=== PATIENT | female | born 1990 | race Caucasian/White ===

== ENCOUNTER 2018-08-07 12:16 | Emergency (ER) | payer MEDICAID ==
[~2018-08-07] VITALS: Ht 157.5 cm; Wt 78.2 kg
[2018-08-07 12:37] VITALS: BP 121/75
--- NOTE | 2018-08-07 12:57 | NUR ---
AMBULATORY TO ER #8 WITH C/O FEELING SAD AND WEEPING FOR THE PAST MONTH. STATES SHE AND FAMILY LUIS FELIPE MOVED TO [place] FROM [facility] IN JANUARY 2018. FEELING SAD BECAUSE SHE HAS NOT MADE NEW FRIENDS OR SECURED EMPLOYMENT. HX DEPRESSION AND ANXIETY SINCE 2018.
[2018-08-07 13:48] LABS: BASOPHILS % (AUTO) 0.3 % (0-1); EOSINOPHILS # (AUTO) 0.2 X10'3 (0-0.9); EOSINOPHILS % (AUTO) 1.9 % (0-6); HEMATOCRIT 42.8 % (35.0-45.0); HEMOGLOBIN 14.6 g/dl (12.0-16.0); LYMPHOCYTES % (AUTO) 10.4 % (21-51); MEAN CORPUSCULAR HEMOGLOBIN 32.2 PG (27.0-31.0); MEAN CORPUSCULAR HGB CONC 34.2 g/dL (33.0-36.5); MEAN CORPUSCULAR VOLUME 94.3 FL (78-98); MEAN PLATELET VOLUME 8.7 FL (7.4-10.4); MONOCYTES # (AUTO) 0.6 X10'3 (0-0.9); MONOCYTES % (AUTO) 6.7 % (2-12); NEUTROPHILS # (AUTO) 7.7 X10'3 (1.8-7.7); NEUTROPHILS % (AUTO) 80.7 % (42-75); PLATELET COUNT 306 X10'3 (140-440); RED BLOOD COUNT 4.54 X10'6 (4.20-5.60); RED CELL DISTRIBUTION WIDTH 12.1 % (11.5-14.5); WHITE BLOOD COUNT 9.5 X10'3 (4.5-11.0)
[2018-08-07 13:49] LABS: URINE HCG NEGATIVE (NEG)
[2018-08-07 13:56] LABS: ALANINE AMINOTRANSFERASE 16 U/L (12-78); ALBUMIN 3.7 G/DL (3.4-5.0); ALKALINE PHOSPHATASE 69 IU/L (46-116); ANION GAP 11 (8-16); ASPARTATE AMINO TRANSFERASE 16 U/L (10-37); BILIRUBIN,TOTAL 0.2 MG/DL (0.1-1.0); BLOOD UREA NITROGEN 9 MG/DL (7-18); BUN/CREATININE RATIO 11.7 (6.6-38.0); CALCIUM 8.7 MG/DL (8.5-10.1); CHLORIDE 105 MMOL/L (99-107); CREATININE 0.77 MG/DL (0.40-0.90); GLUCOSE 114 MG/DL (70-104); POTASSIUM 4.3 MMOL/L (3.5-5.1); SODIUM 141 MMOL/L (135-145); TOTAL CARBON DIOXIDE 25.2 MMOL/L (24-32); TOTAL PROTEIN 7.3 G/DL (6.4-8.2); eGFR 89 ML/MIN
[2018-08-07 14:01] LABS: URINE AMPHETAMINE SCREEN NEGATIVE (Neg); URINE BARBITUATE SCREEN POSITIVE (Neg); URINE BENZODIAZEPINES SCREEN NEGATIVE (Neg); URINE CANNABINOID SCREEN POSITIVE (Neg); URINE COCAINE SCREEN NEGATIVE (Neg); URINE METHADONE SCREEN NEGATIVE (Neg); URINE OPIATE SCREEN NEGATIVE (Neg); URINE PHENCYCLIDINE SCREEN NEGATIVE (Neg)
[2018-08-07 14:06] LABS: ETHANOL < 0.010 GM/DL (0.0-0.010)
--- NOTE | 2018-08-07 14:14 | NUR ---
TC TO SPECIALISTS ROUSTABOUT CREW LEADER FOR TELEPSYCH CONSULT. CART #2 SET UP IN ROOM.
--- NOTE | 2018-08-07 15:06 | NUR ---
AWAITING TELEPSYCH CONSULT. CAMERA IS SET UP AND ON IN THE ROOM.
--- NOTE | 2018-08-07 15:18 | NUR ---
TC FROM PSYCHIATRIST, DR. ROSALES, SPECIALISTS BASIN OPERATOR. REPORT GIVEN TO AND INFORMED THAT WILL CALL IN TO ROOM FOR TELE CONSULT.
[2018-08-07 15:37] LABS: CLARITY,URINE SLIGHTLY CLOUDY (Clear); COLOR,URINE YELLOW (Yellow); GLUCOSE, URINE NEGATIVE (Neg); KETONES,URINE NEGATIVE (Neg); LEUKOCYTE ESTERASE ,URINE NEGATIVE (Neg); NITRITES, URINE NEGATIVE (Neg); OCCULT BLOOD,URINE NEGATIVE (Neg); PH,URINE 6.5 (4.8-8.0); PROTEIN,URINE NEGATIVE (Neg); UROBILINOGEN,URINE 0.2 E.U/dL (0.2-1.0)
[2018-08-07 15:39] LABS: UA COLLECTION TYPE CLN CATCH MIDSTREAM
[2018-08-07 15:41] LABS: MUCUS STRANDS MODERATE /LPF (Neg); SQUAMOUS EPITHELIAL CELL,UR MANY /LPF (FEW)
[2018-08-07 15:42] LABS: BACTERIA,URINE FEW /HPF (Neg); RBC,URINE 0-2 /HPF (0-2); WBC,URINE 0-4 /HPF (0-4)
--- NOTE | 2018-08-07 15:46 | NUR ---
TC FROM PSYCHIATRIST WITH SUGGESTIONS. REPORT WILL BE GENERATED AND FAXED FOR THE ER PROVIDER TO USE FOR TREATMENT PLAN.
[2018-08-07] MEDS ORDERED: ESCI10TA PO (16:08)
== END 2018-08-07 16:20 | disposition home or self-care (01) ==
LOC: ER 12:16
DX: F32.9 Major depressive disorder, single episode, unspecified (principal); Z79.899 Other long term (current) drug therapy
CPT/HCPCS: 36415; 80053; 80305; 80320; 81001; 81025; 84443; 85025; 99284

== ENCOUNTER 2019-02-06 17:58 | Emergency (ER) | payer MEDICAID ==
[~2019-02-06] VITALS: Ht 157.5 cm; Wt 75.9 kg
[~2019-02-06 17:58] MED LIST: ESCI10TA PO
[2019-02-06] MEDS ORDERED: ondansetron 4mg rapidly disintigrating tab PO ONE (18:35)
[2019-02-06] MEDS ORDERED: bacitracin 15gm ointment TP ONE (18:35)
[2019-02-06] MEDS ORDERED: TETanus/Pertussis (Acell)/Diphther VAC/PF (Tdap-Adult) 0.5ml syringe IM ONE (18:35)
--- NOTE | 2019-02-06 19:23 | NUR ---
overhead door technician at bedside to irrigate lac to rt foot
[2019-02-06] MEDS ORDERED: ketorolac trometh inj. 60 MG/2 ML VIAL IM ONE (19:45)
[2019-02-06 20:19] VITALS: BP 123/68
== END 2019-02-06 20:21 | disposition home or self-care (01) ==
LOC: ER 17:58
DX: S91.311A Laceration without foreign body, right foot, initial encounter (principal); F32.9 Major depressive disorder, single episode, unspecified; Z79.899 Other long term (current) drug therapy; W25.XXXA Contact with sharp glass, initial encounter; Y93.89 Activity, other specified; Y92.89 Other specified places as the place of occurrence of the external cause; Y99.8 Other external cause status
CPT/HCPCS: 12002; 90471; 90715; 96372; 99284; J1885; J2405

== ENCOUNTER 2019-02-16 12:01 | Emergency (ER) | payer MEDICAID ==
[~2019-02-16] VITALS: Ht 157.5 cm; Wt 72.0 kg
[2019-02-16 12:04] VITALS: BP 115/61
== END 2019-02-16 12:53 | disposition home or self-care (01) ==
LOC: ER 12:01
DX: S91.311D Laceration without foreign body, right foot, subsequent encounter (principal); F32.9 Major depressive disorder, single episode, unspecified; Z79.899 Other long term (current) drug therapy; W25.XXXD Contact with sharp glass, subsequent encounter
CPT/HCPCS: 99282

== ENCOUNTER 2019-02-18 10:20 | Emergency (ER) | payer MEDICAID ==
[~2019-02-18] VITALS: Ht 157.5 cm; Wt 78.2 kg
[2019-02-18 12:36] VITALS: BP 113/74
== END 2019-02-18 12:39 | disposition home or self-care (01) ==
LOC: ER 10:20
DX: M79.671 Pain in right foot (principal); F32.9 Major depressive disorder, single episode, unspecified; Z79.899 Other long term (current) drug therapy
CPT/HCPCS: 29125; 73630; 99283

== ENCOUNTER 2019-03-29 15:41 | Emergency (ER) | payer MEDICAID, OTHER ==
[~2019-03-29] VITALS: Ht 157.5 cm; Wt 70.9 kg
[2019-03-29 15:45] VITALS: BP 117/58
[2019-03-29 16:05] LABS: CLARITY,URINE SLIGHTLY CLOUDY (Clear); COLOR,URINE YELLOW (Yellow); GLUCOSE, URINE NEGATIVE (Neg); KETONES,URINE NEGATIVE (Neg); LEUKOCYTE ESTERASE ,URINE SMALL (Neg); NITRITES, URINE POSITIVE (Neg); OCCULT BLOOD,URINE LARGE (Neg); PROTEIN,URINE 30 mg/dl (Neg); UROBILINOGEN,URINE 0.2 E.U/dL (0.2-1.0)
[2019-03-29 16:07] LABS: URINE HCG NEGATIVE (NEG)
[2019-03-29 16:25] LABS: UA COLLECTION TYPE CLN CATCH MIDSTREAM
[2019-03-29 16:27] LABS: MUCUS STRANDS MODERATE /LPF (Neg); SQUAMOUS EPITHELIAL CELL,UR MODERATE /LPF (FEW)
[2019-03-29 16:28] LABS: BACTERIA,URINE 2+ /HPF (Neg); WBC CLUMPS,URINE FEW /HPF (NEGATIVE); WBC,URINE 20-30 /HPF (0-4)
[2019-03-29] MEDS ORDERED: PHEN-824 PO (17:00)
[2019-03-29] MEDS ORDERED: CEPH-572 PO (17:00)
== END 2019-03-29 17:16 | disposition home or self-care (01) ==
LOC: ER 15:42
DX: N39.0 Urinary tract infection, site not specified (principal); R31.9 Hematuria, unspecified; F32.9 Major depressive disorder, single episode, unspecified; Z79.899 Other long term (current) drug therapy
CPT/HCPCS: 81001; 81025; 87077; 87088; 87186; 99283

== ENCOUNTER 2020-12-22 10:25 | Emergency (ER) | payer MEDICAID ==
[~2020-12-22] VITALS: Ht 157.5 cm; Wt 69.0 kg
[~2020-12-22 10:25] MED LIST changes: +LEVO750T46 PO; +NICO-631 TD; +ONDA4TAB12 PO
[2020-12-22] MEDS ORDERED: normal saline 1000ML IV soln IVB ONE (10:45)
[2020-12-22 11:31] LABS: BASOPHILS % (AUTO) 0.3 % (0-1); EOSINOPHILS % (AUTO) 0.6 % (0-6); HEMATOCRIT 33.5 % (35.0-45.0); HEMOGLOBIN 11.7 g/dl (12.0-16.0); LYMPHOCYTES % (AUTO) 17.6 % (21-51); MEAN CORPUSCULAR HEMOGLOBIN 33.4 PG (27.0-31.0); MEAN CORPUSCULAR VOLUME 95.5 FL (78-98); MEAN PLATELET VOLUME 8.4 FL (7.4-10.4); MONOCYTES # (AUTO) 0.5 X10'3 (0-0.9); MONOCYTES % (AUTO) 8.9 % (2-12); NEUTROPHILS # (AUTO) 4.1 X10'3 (1.8-7.7); NEUTROPHILS % (AUTO) 72.6 % (42-75); PLATELET COUNT 244 X10'3 (140-440); RED CELL DISTRIBUTION WIDTH 12.6 % (11.5-14.5); WHITE BLOOD COUNT 5.7 X10'3 (4.5-11.0)
[2020-12-22 11:39] LABS: ALANINE AMINOTRANSFERASE 17 U/L (12-78); ALBUMIN 3.4 G/DL (3.4-5.0); ALBUMIN/GLOBULIN RATIO 1.1 (1.1-1.5); ALKALINE PHOSPHATASE 48 IU/L (46-116); ANION GAP 10 (8-16); ASPARTATE AMINO TRANSFERASE 17 U/L (10-37); BILIRUBIN,TOTAL 0.3 MG/DL (0.1-1.0); BLOOD UREA NITROGEN 8 MG/DL (7-18); BUN/CREATININE RATIO 10.5 (6.6-38.0); CALCIUM 8.4 MG/DL (8.5-10.1); CHLORIDE 107 MMOL/L (99-107); CREATININE 0.76 MG/DL (0.40-0.90); GLUCOSE 93 MG/DL (70-104); POTASSIUM 3.9 MMOL/L (3.5-5.1); SODIUM 142 MMOL/L (135-145); TOTAL CARBON DIOXIDE 25.2 MMOL/L (24-32); TOTAL PROTEIN 6.6 G/DL (6.4-8.2); eGFR 89 ML/MIN
[2020-12-22] MEDS ORDERED: dexamethasone sod phosphate 10mg/ml inj IV STA (11:57)
[2020-12-22] MEDS ORDERED: ketorolac trometh. 30mg/ml inj. IV ONE (12:00)
[2020-12-22] MEDS ORDERED: metoclopramide 5 mg/ml inj IV ONE (12:00)
[2020-12-22 12:22] VITALS: BP 137/77
--- NOTE | 2020-12-22 12:45 | NUR ---
PATIENT ALERTED STAFF THAT SHE WANTED TO LEAVE. PT'S AQUINO HAS RESOLVED AFTER MEDICATIONS. NUMBNESS HAS IMPROVED WELL. INFORMED PROVIDER OF SITUATION.
== END 2020-12-22 13:02 | disposition left against medical advice (07) ==
LOC: ER 10:28
DX: H53.8 Other visual disturbances (principal); R53.1 Weakness; R20.2 Paresthesia of skin; R11.0 Nausea; F32.9 Major depressive disorder, single episode, unspecified; F17.200 Nicotine dependence, unspecified, uncomplicated; Z87.440 Personal history of urinary (tract) infections; Z98.51 Tubal ligation status; Z72.89 Other problems related to lifestyle; Z79.2 Long term (current) use of antibiotics; Z79.899 Other long term (current) drug therapy
CPT/HCPCS: 36415; 70450; 71045; 80053; 85025; 93005; 96361; 96374; 96375; 99285; J1100; J1885; J2765; J7030

== ENCOUNTER 2021-08-27 06:50 | Emergency (ER) | payer MEDICAID, OTHER ==
[~2021-08-27] VITALS: Ht 157.5 cm; Wt 73.0 kg
[2021-08-27 06:50] VITALS: BP 128/74
[2021-08-27] MEDS ORDERED: NIRM1TAB PO (07:37)
[2021-08-27] MEDS ORDERED: BUDE10.27 INH (07:44)
[2021-08-27] MEDS ORDERED: DEXA6TAB6 PO (07:44)
--- NOTE | 2021-08-27 07:50 | NUR ---
Pt given and understands d/c instructions. Ambulatory with a steady gait.
== END 2021-08-27 07:50 | disposition home or self-care (01) ==
LOC: ER 07:29
DX: U07.1 COVID-19 (principal); R05.9 Cough, unspecified; M54.50 Low back pain, unspecified; R06.02 Shortness of breath; F32.A Depression, unspecified; Z87.440 Personal history of urinary (tract) infections; Z98.51 Tubal ligation status; Z72.89 Other problems related to lifestyle; Z79.2 Long term (current) use of antibiotics; Z79.899 Other long term (current) drug therapy
CPT/HCPCS: 71045; 87635; 99284; C9803

== ENCOUNTER 2022-05-08 10:51 | Emergency (ER) | payer OTHER ==
[~2022-05-08] VITALS: Ht 157.5 cm; Wt 80.0 kg
[~2022-05-08 10:51] MED LIST changes: +BUDE10.27 INH; +DEXA6TAB6 PO; -LEVO750T46 PO; +LEVO750T68 PO; +NIRM1TAB PO
[2022-05-08 11:58] VITALS: BP 142/79
[2022-05-08] MEDS ORDERED: OFLO5DRO5 LEFT EAR (13:08)
== END 2022-05-08 13:18 | disposition home or self-care (01) ==
LOC: ER 10:51
DX: H65.92 Unspecified nonsuppurative otitis media, left ear (principal); H60.502 Unspecified acute noninfective otitis externa, left ear; F32.A Depression, unspecified; Z87.442 Personal history of urinary calculi; Z79.899 Other long term (current) drug therapy
CPT/HCPCS: 99283

== ENCOUNTER 2023-07-31 07:59 | Emergency (ER) | payer SELFPAY ==
[~2023-07-31] VITALS: Ht 157.5 cm; Wt 73.0 kg
[~2023-07-31 07:59] MED LIST changes: +OFLO5DRO5 LEFT EAR
[2023-07-31 08:04] VITALS: BP 132/78; PULSE 98; RESP 16; TEMP 97.7; O2SAT 97
[2023-07-31 08:38] LABS: URINE HCG NEGATIVE (NEG)
[2023-07-31 08:49] LABS: BILIRUBIN,URINE NEGATIVE (Neg); CLARITY,URINE SLIGHTLY CLOUDY (Clear); COLOR,URINE YELLOW (Yellow); GLUCOSE, URINE NEGATIVE (Neg); KETONES,URINE NEGATIVE (Neg); LEUKOCYTE ESTERASE ,URINE SMALL (Neg); NITRITES, URINE NEGATIVE (Neg); OCCULT BLOOD,URINE SMALL (Neg); PROTEIN,URINE NEGATIVE (Neg); UA COLLECTION TYPE CLN CATCH MIDSTREAM; UROBILINOGEN,URINE 0.2 E.U/dL (0.2-1.0)
[2023-07-31 08:52] LABS: BACTERIA,URINE FEW /HPF (Neg); MUCUS STRANDS NONE SEEN /LPF (Neg); SQUAMOUS EPITHELIAL CELL,UR MANY /LPF (FEW); WBC,URINE 30-50 /HPF (0-4)
[2023-07-31] MEDS ORDERED: NITR100C6 PO (09:04)
[2023-07-31] MEDS ORDERED: PHEN-716 PO (09:04)
[2023-07-31] MEDS: phenazopyridine 100mg tablet PO ONE (09:11)
== END 2023-07-31 09:38 | disposition home or self-care (01) ==
LOC: ER 08:00
DX: N39.0 Urinary tract infection, site not specified (principal); F32.A Depression, unspecified; Z98.890 Other specified postprocedural states; Z72.89 Other problems related to lifestyle
CPT/HCPCS: 81001; 81025; 99283

== ENCOUNTER 2024-04-06 08:44 | Emergency (ER) | payer OTHER ==
[~2024-04-06] VITALS: Ht 157.5 cm; Wt 77.3 kg
[~2024-04-06 08:44] MED LIST changes: +NITR100C6 PO; +ONDA-243 PO; -ONDA4TAB12 PO; +PHEN-716 PO
[2024-04-06 08:46] VITALS: TEMP 98.5
[2024-04-06 09:19] LABS: CLARITY,URINE CLOUDY (Clear); COLOR,URINE ORANGE (Yellow); UA COLLECTION TYPE CLN CATCH MIDSTREAM
[2024-04-06 09:31] LABS: SQUAMOUS EPITHELIAL CELL,UR FEW /LPF (FEW)
[2024-04-06 09:32] LABS: BACTERIA,URINE 3+ /HPF (Neg); RBC,URINE 50-100 /HPF (0-2); WBC CLUMPS,URINE MODERATE /HPF (NEGATIVE); WBC,URINE 30-50 /HPF (0-4)
[2024-04-06] MEDS ORDERED: NITR100C PO (10:49)
[2024-04-06 11:09] VITALS: BP 121/89; PULSE 74; RESP 16; O2SAT 97
== END 2024-04-06 11:11 | disposition home or self-care (01) ==
LOC: ER 08:44
DX: N39.0 Urinary tract infection, site not specified (principal); F32.A Depression, unspecified; Z98.51 Tubal ligation status; Z79.2 Long term (current) use of antibiotics; Z79.899 Other long term (current) drug therapy; Z72.89 Other problems related to lifestyle
CPT/HCPCS: 81001; 87077; 87088; 87186; 99283

== ENCOUNTER 2024-08-02 21:43 | Emergency (ER) | payer OTHER ==
[~2024-08-02] VITALS: Ht 157.5 cm; Wt 74.0 kg
[~2024-08-02 21:43] MED LIST changes: +NITR100C PO
[2024-08-02 21:53] VITALS: BP 143/87
[2024-08-02] MEDS: acetaminophen 325mg tablet PO ONE (22:44)
[2024-08-03] MEDS ORDERED: AZIT250T83 PO (00:20)
[2024-08-03] MEDS ORDERED: BENZ-38 PO (00:20)
[2024-08-03 00:36] VITALS: PULSE 105; RESP 16; TEMP 98.6; O2SAT 96
== END 2024-08-03 00:40 | disposition home or self-care (01) ==
LOC: ER 21:45
DX: J22 Unspecified acute lower respiratory infection (principal); F32.A Depression, unspecified; Z98.51 Tubal ligation status; Z20.822 Contact with and (suspected) exposure to COVID-19
CPT/HCPCS: 36415; 87502; 87503; 87811; 99283